=== PATIENT | female | born 1960 | race Caucasian/White ===

== ENCOUNTER 2016-09-01 14:27 | Emergency (ER) | payer OTHER ==
[~2016-09-01] VITALS: Ht 154.9 cm; Wt 72.6 kg
[2016-09-01] MEDS ORDERED: Fioricet 325 MG1 TAB PO (14:36)
[2016-09-01] MEDS ORDERED: PROTONIX40 MG PO (14:37)
[2016-09-01] MEDS ORDERED: BIOTIN1000 MC1 PO (14:37)
[2016-09-01] MEDS ORDERED: TIZANIDINE2 MG PO (14:38)
[2016-09-01] MEDS ORDERED: NEURONTIN100 MG PO (14:39)
[2016-09-01] MEDS ORDERED: CARAFATE1 G1 PO (14:39)
[2016-09-01] MEDS ORDERED: PROZAC40 M1 PO (14:39)
[2016-09-01] MEDS ORDERED: PHENERGAN25 M3 PO (14:40)
[2016-09-01] MEDS ORDERED: LIPITOR40 MG PO (14:41)
[2016-09-01] MEDS ORDERED: IMITREX100 MG PO (14:41)
[2016-09-01] MEDS ORDERED: CENTRUM SILVER1 EAC1 PO (14:42)
[2016-09-01] MEDS ORDERED: SELENIUM200 MC3 PO (14:43)
== END 2016-09-01 16:38 | disposition home or self-care (01) ==
LOC: ED 14:27
DX: R51 Headache (principal); R03.0 Elevated blood-pressure reading, without diagnosis of hypertension; Z91.030 Bee allergy status; Z79.899 Other long term (current) drug therapy